=== PATIENT | female | born 1945 | race Caucasian/White ===

== ENCOUNTER 2018-10-31 09:57 | Day surgery (SDC) | payer MEDICARE, OTHER ==
[~2018-10-31] VITALS: Ht 167.6 cm; Wt 78.5 kg
[~2018-10-31 09:57] MED LIST: ADVAIR 500-501 EACH INH; ALBUTEROL2.5 MG/3 M INH; AMLODIPINE BES2.5 MG PO; AMLODIPINE BESYL5 MG PO; ASPIR 8181 MG PO; CYCLOBENZAPRINE10 MG PO; DARIFENACIN ER15 MG PO; DEXILANT60 MG PO; DIPHENHYDRAMINE25 M1 PO; FENOFIBRATE145 MG PO; HYDROMORPHONE HC4 MG PO; METOPROLOL SUCC25 MG PO; MONTELUKAST SOD10 MG PO; NORCO 5-325 TA1 EACH PO; PAROXETINE HCL30 MG PO; PAROXETINE HCL40 MG PO; RANITIDINE HCL150 MG PO; STOOL SOFTENER1 EAC2 PO; TIROSINT25 MCG PO; TIZANIDINE HCL2 M1 PO
--- NOTE | 2018-10-31 13:16 | NUR ---
10/31/18 1316 Sheets,[place] 1309 PT ARRIVED TO PACU ON 3L VIA NC, PT DROWSY AND DENIES NAUSEA AND PAIN. PT ENCOURAGED TO PASS GAS.
--- NOTE | 2018-11-01 16:41 | OR ---
[facility] [address] [place], [place] [address] Signed DATE OF OPERATION: 10/31/2018 SURGEON: Fernanda Lainez MD PREOPERATIVE DIAGNOSES: 1. Low abdominal pain, some mid abdominal pain and back pain. 2. History of Hill posterior gastropexy for intractable reflux, January 2016. POSTOPERATIVE DIAGNOSES: 1. Intact flap valve from Hill repair. 2. Normal-appearing esophageal mucosa. 3. Antral gastritis. PROCEDURE: Esophagogastroduodenoscopy with biopsy. ANESTHESIA: Intravenous sedation, fentanyl 100 mcg, Versed 3 mg. INDICATION: This 73-year-old white woman underwent Hill posterior gastropexy (reflux operation) in 2015 for intractable gastroesophageal reflux problems. She did well with it. She recently saw me, complained of back pain and some periumbilical pain and some concern that "acid is back." She was empirically treated with Nexium, which has been helpful. She is having no dysphagia or hematemesis. She does have some constipation. She continues to smoke unfortunately. She is admitted to undergo upper endoscopy to better characterize the issue, particularly to assess if there is breakdown of her repair. She understands the risks of bleeding, infection, and perforation and wished to proceed. FINDINGS: The esophageal mucosa was entirely normal. The flap valve appeared to be intact. There was no sign of recurrent hiatal hernia. There was antral gastritis. CLOtest was negative. DESCRIPTION OF PROCEDURE: The patient was brought to the endoscopy suite and given topical Hurricaine spray hypopharyngeal anesthesia and placed in lateral decubitus position. She was given intravenous sedation to the point of slurred speech and nystagmus. A bite block was placed. An Olympus video upper endoscope was passed in the hypopharynx. The vocal cords were normal. Scope was advanced to the esophagus throughout its length, it was Electronically Signed By: FERNANDA LAINEZ MD 11/01/18 1641 PATIENT NAME: JAMILAH DIAZ OPERATIVE REPORT DATE OF : 45 REPORT #: [id number] PHYSICIAN: FERNANDA LAINEZ MD PCP: ROLAND FARIAS PAC REPORT IS CONFIDENTIAL AND NOT TO BE RELEASED WITHOUT AUTHORIZATION [facility] [address] [place], [place] [address] Signed entirely normal. There is certainly no sign of stricture, neoplasm or any inflammation. Scope was advanced to the stomach, which was insufflated with air. Excess gastric juices suctioned free. There was no sign of bile in the stomach. Rugal folds were normal. There appeared to be mild antral gastritis, but no sign of erosion or ulcer proper. The pylorus was normal. Scope was passed through into the duodenum, which was normal. Biopsies were taken of the duodenum nevertheless. The scope was then withdrawn to the stomach and biopsies taken of the antrum for both EARNEST and pathologic testing. Insufflation of the stomach was undertaken and retroflexed view undertaken showing an intact flap valve. Retroflex view in an aggressive way did allow for visualization in a retrograde fashion upon withdrawal of scope into the GE junction. It is widely patent. The scope was straightened and withdrawn to the distal esophagus where the mucosa of the esophagus appeared normal. This was biopsied. Scope was then withdrawn and remaining esophagus appeared normal. CONCLUDING DIAGNOSIS: No evidence of recurrent esophagitis or hiatal hernia. Symptoms may be related to peptic symptoms of the antrum. PLAN: We will initiate Carafate 1 g p.o. q.i.d. on empty stomach, see back in 6 to 8 weeks and assess progress. She should quit smoking as this may be contributing to her gastritis. MD RODERICK Rincon/MAIKOLL /[id number] cc: Roland Farias PA-C Copies: ~ Electronically Signed By: FERNANDA LAINEZ MD 11/01/18 1641 PATIENT NAME: JAMILAH DIAZ OPERATIVE REPORT DATE OF : 45 REPORT #: [id number] PHYSICIAN: FERNANDA LAINEZ MD PCP: ROLAND FARIAS PAC REPORT IS CONFIDENTIAL AND NOT TO BE RELEASED WITHOUT AUTHORIZATION
--- NOTE | 2018-11-03 14:47 | PATH ---
[facility] [address] [place], [place] [address] Signed SPECIMEN(S): A DUODENAL BIOPSY SPECIMEN(S): B STOMACH BIOPSY SPECIMEN(S): C LOWER ESOPHAGEAL BIOPSY SPECIMEN SOURCE: A. DUODENAL BIOPSY B. STOMACH BIOPSY C. LOWER ESOPHAGEAL BIOPSY CLINICAL HISTORY: Abdominal pain, reflux. MICROSCOPIC DESCRIPTION: Histologic sections of all submitted blocks are examined by light microscopy. These findings, together with the gross examination, support the pathologic diagnosis. C. Sections reveal a biopsy of esophageal mucosa composed of stratified squamous nonkeratinizing epithelium. The basal cell layer is not prominent and rete ridges are not elongated. The mucosa proper contains a few lymphocytes. No eosinophils are seen. Submucosa is unremarkable. No glandular mucosa is present. LJA:smn FINAL PATHOLOGIC DIAGNOSIS: A. Mucosa, duodenum, biopsy: - Duodenal mucosa with normal villiform architecture, no microscopic pathologic diagnosis. B. Mucosa, stomach, biopsy: - No microscopic pathologic diagnosis. - Negative for the presence of bacteria morphologically consistent with Helicobacter on HE-stained sections. C. Mucosa, lower esophagus, biopsy: - No microscopic pathologic diagnosis. LJA:smn:C2NR GROSS DESCRIPTION: Three specimens are received in three containers, labeled "SS." A. The specimen, labeled "SS, duodenal biopsy," is received in formalin and consists of two linares-pink fragments, both measuring 0.2 cm. The specimen is entirely submitted in cassette (A1). B. The specimen, labeled "SS, gastric biopsy," is received in formalin and consists of two linares-brown fragments, both measuring 0.2 cm. The specimen is PATIENT NAME: JAMILAH DIAZ PATHOLOGY DATE OF : 45 REPORT #: [id number] PHYSICIAN: SHERRY SOTO PCP: ROLAND FARIAS PAC REPORT IS CONFIDENTIAL AND NOT TO BE RELEASED WITHOUT AUTHORIZATION [facility] [address] [place] [address] Signed entirely submitted in cassette (B1). C. The specimen, labeled "SS, lower esophageal biopsy," is received in formalin and consists of three, 0.1-0.3 cm linares-white fragments. The specimen is entirely submitted in cassette (C1). AM (under the direct supervision of a pathologist) The Gross Description was prepared using a voice recognition system. The report was reviewed for accuracy; however, sound-alike word errors, addition and/or deletions may occur. If there is any question about this report, please contact Client Services. PERFORMING LABORATORY: The technical component was performed by [facility], [address] [place] [id number] (Partition Setter: Janina Green MD; CLIA# [id number]). [facility], [address] [address] (Partition Setter: Sekou Small MD; CLIA# [id number]). Diagnostician: Sekou Small MD Pathologist Electronically Signed 11/03/2018 Copies: ~ PATIENT NAME: JAMILAH DIAZ PATHOLOGY DATE OF : 45 REPORT #: [id number] PHYSICIAN: SHERRY SOTO PCP: ROLAND FARIAS PAC REPORT IS CONFIDENTIAL AND NOT TO BE RELEASED WITHOUT AUTHORIZATION
== END 2018-10-31 15:35 | disposition home or self-care (01) ==
LOC: DS 09:57 → OPS 09:57
PROVIDERS: Surgery
PROC: 0DB68ZX Excision of Stomach, Via Natural or Artificial Opening Endoscopic, Diagnostic (ICD-10-PCS; 2018-10-31)
PROC: 0DB38ZX Excision of Lower Esophagus, Via Natural or Artificial Opening Endoscopic, Diagnostic (ICD-10-PCS; 2018-10-31)
PROC: 0DB98ZX Excision of Duodenum, Via Natural or Artificial Opening Endoscopic, Diagnostic (ICD-10-PCS; principal; 2018-10-31 09:00)
DX: K29.70 Gastritis, unspecified, without bleeding (principal); M19.90 Unspecified osteoarthritis, unspecified site; F17.210 Nicotine dependence, cigarettes, uncomplicated; E66.3 Overweight; G70.00 Myasthenia gravis without (acute) exacerbation; R32 Unspecified urinary incontinence; Z98.890 Other specified postprocedural states; Z88.0 Allergy status to penicillin; Z88.8 Allergy status to other drugs, medicaments and biological substances; Z91.041 Radiographic dye allergy status; Z68.28 Body mass index [BMI] 28.0-28.9, adult
CPT/HCPCS: 99153; G0500; J2250; J3010; J7120

== ENCOUNTER 2019-02-12 10:55 | Day surgery (SDC) | payer MEDICARE, OTHER ==
[~2019-02-12] VITALS: Ht 165.1 cm; Wt 78.5 kg
--- NOTE | ~2019-02-12 | OR ---
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 POSTOPERATIVE DIAGNOSES: 1. Chronic acalculous cholecystitis (CCK HIDA test, no ejection fraction, and reproduction of biliary symptoms). 2. Omental adhesions to abdominal wall. PROCEDURES PERFORMED: 1. Laparoscopic evaluation with lysis of adhesions. 2. Laparoscopic cholecystectomy with intraoperative cholangiogram. 3. Surgeon-directed fluoroscopy. ANESTHESIA: General endotracheal; Fernanda Pacheco CRNA, and local 10 mL of 0.25% Marcaine with epinephrine. INDICATIONS: This 74-year-old white woman is a patient of David Mendoza and well known to me from the past having undergone Hill repair for a large paraesophageal hernia in 2016. The patient has developed complaints of band-like pain extending from the epigastric to the right subcostal and to the posterior thoracic area, which is persistent and ongoing. A gallbladder ultrasound showed no sign of stones and a CCK HIDA test was performed on February 05, 2019, which showed essentially no ejection fraction and reproduction of her symptoms. This would be considered a significantly positive test for acalculous cholecystitis. She has been offered laparoscopic cholecystectomy, possible open procedure. She had a paraesophageal hernia repair as previously described, which has held up well and she has no reflux type symptoms or dysphagia. The patient understands the risks of operation including but not limited to bleeding, infection, bile duct injury, need for open procedure and other unforeseen complications. FINDINGS: PATIENT NAME: JAMILAH DIAZ OPERATIVE REPORT DATE OF : 45 REPORT #: [id number] PHYSICIAN: FERNANDA LAINEZ MD PCP: ROLAND FARIAS PAC REPORT IS CONFIDENTIAL AND NOT TO BE RELEASED WITHOUT AUTHORIZATION [facility] [address] [place], [place] [address] Draft A midline incision extending from the xiphoid to above the umbilicus was well demonstrated without hernia. There were some omental adhesions to the anterior abdominal wall, which required lysis of adhesions for exposure of the gallbladder. Once this was accomplished, cholecystectomy was rather straightforward. The gallbladder was chronically inflamed, somewhat floppy. The liver was normal. The stomach appeared to be within the abdominal cavity. There were no other findings of concern. The gallbladder once excised showed mild chronic inflammation of mucosa, no sign of stones, no sign of neoplasm. Cholangiogram was normal. DESCRIPTION OF PROCEDURE: The patient was brought to the operating room, given a general endotracheal anesthetic. Preoperative antibiotic Ancef was given. Sequential compression device stockings used and heparin subcutaneously administered. After satisfactory general endotracheal anesthesia, the abdomen was prepared with a chlorhexidine solution and draped sterilely. The previous incision extended from below the xiphoid to above the umbilicus. The infraumbilical incision was made and using an open Cynthia cannula technique, pneumoperitoneum was achieved to a level of 14 mmHg of carbon dioxide gas. Intraabdominal inspection showed omental adhesions to the anterior abdominal wall, generally in the area of the previous incision. On that basis, a 12 mm epigastric port was placed out of the way of the adhesions and using primarily sharp and some electrocautery dissection, omental adhesions were dissected free from the anterior abdominal wall without problem. Two additional trocars were placed, one in the midclavicular line, and in the right anterior axillary line. Gallbladder was then identified more fully, showed to be chronically inflamed. [place] of gallbladder was elevated cephalad. Omental adhesions were taken down with blunt electrocautery dissection. The infundibulum was grasped and retracted laterally and using blunt and electrocautery dissection the triangle of Calot was dissected free. A dominant cystic artery was identified and was doubly clipped and subsequently divided. Further dissection showed a normal-appearing cystic duct. The cystic duct was clipped at the gallbladder cystic duct junction and a transverse choledochotomy made in the cystic duct. Retrograde milking of the duct showed no sign of stone, only clear bile. Using the Tariq type cholangiocatheter, intraoperative cholangiography was undertaken showing free flow of contrast into the biliary tree with prompt emptying into the duodenum. There was no sign of filling defect or other abnormality. The catheter was removed and the cystic duct was triply clipped and divided. The gallbladder dissected free in a retrograde fashion using electrocautery. Gallbladder was extracted through the infraumbilical port site without problem, opened on the back PATIENT NAME: JAMILAH DIAZ OPERATIVE REPORT DATE OF : 45 REPORT #: [id number] PHYSICIAN: FERNANDA LAINEZ MD PCP: ROLAND FARIAS PAC REPORT IS CONFIDENTIAL AND NOT TO BE RELEASED WITHOUT AUTHORIZATION [address] [address] Draft table and found to have chronic inflammatory change of the mucosa. No sign of stones or neoplasm. Irrigation was undertaken in subhepatic space. There was no sign of bleeding or other issue. There was no bile leak. The trocars were then removed under direct visualization showing no sign of bleeding. The infraumbilical fascial incision was reapproximated with interrupted 0 Vicryl suture and a running 0 PDS suture as well. 10 mL of 0.25% Marcaine with epinephrine was injected locally for postoperative analgesic benefit to each of the incisions. The skin was then closed with interrupted 3-0 Vicryl and Steri-Strips applied. The patient was ultimately extubated and transferred to recovery room in good condition having suffered no complication. Sponge, needle, and instrument counts reported as correct x3. The operation was more difficult than usual on the basis of lysis of adhesions from prior laparotomy incision, but it was accomplished safely. MD RODERICK Rincon/ISIS /[id number] cc: CACHORRO Goyal Copies: ~ PATIENT NAME: JAMILAH DIAZ OPERATIVE REPORT DATE OF : 45 REPORT #: [id number] PHYSICIAN: FERNANDA LAINEZ MD PCP: ROLAND FARIAS PAC REPORT IS CONFIDENTIAL AND NOT TO BE RELEASED WITHOUT AUTHORIZATION
[~2019-02-12 10:55] MED LIST changes: +ADVAIR 250-501 EACH INH; +INCRUSE ELLI62.5 MCG; +IRON325 M1 PO; +VITAMIN C500 M4 PO; +VITAMIN D32000 UNI1 PO
--- NOTE | 2019-02-12 17:25 | NUR ---
PT HAS BEEN UPDATED ABOUT DELAY TODAY. HAS BEEN OK WITH IT. IV PATENT. WARM BLANKETS PUT ON PT PER REQUEST.
--- NOTE | 2019-02-12 19:37 | NUR ---
02/12/191936 Jessica Taylor 1927-PATIENT ARRIVED TO PACU ON 10L MASK NONAROUSABLE. RR EVEN. ABDOMEN ROUND STERI STRIPS CDI. SB. PLACED ON 6L MASK 1933-PATIENT REACTIVE TO VERBAL STIMULI OPENING EYES RAISING RIGHT HAND. ORAL AIRWAY REMOVED. ON 6L MASK RR EVEN. PATIENT VERY DROWSY SHAKES HEAD NO WHEN ASKED IF IN PAIN. DOZES BACK TO SLEEP.
[2019-02-12] MEDS ORDERED: TYLENOL EXTRA500 MG PO (19:49)
[2019-02-12] MEDS ORDERED: IBUPROFEN600 MG PO (19:49)
[2019-02-12] MEDS ORDERED: OXYCODON-ACETA1 EAC2 PO (19:49)
--- NOTE | 2019-02-12 20:10 | NUR ---
PT ARRIVED FROM PACU VIA STRETCHER. SHE IS ON 2 LNC AND SHE IS ALERT AND ORIENTENTED. PT WAS ABLE TO MOVE HERSELF OVER TO THE BED. SON IN LAW IN IS THE ROOM.
--- NOTE | 2019-02-12 21:04 | NUR ---
PT IS DOING WELL, SHE HAS MET ALL DC CRITERIA EXCEPT SHE IS ON 1LNC AT THIS TIME. HER SON IN LAW LEFT TO GET HER PRESCRIPTION. SHE DENIES NAUSEA AND WAS JUST GIVE OXYCODONE FOR 5/10 PAIN. SHE IS GETTING DRESSED AT THIS TIME. CALL LIGHT IS WITHIN REACH.
--- NOTE | 2019-02-12 21:24 | NUR ---
PT IS DRESSED AND WANTING TO GO, SHE IS IN THE LOW 90'S 02 ON 1 LNC. TURNED HER O2 OFF AND SHE IS 90%. WILL CHECK ON HER AGAIN TO SEE IF SHE IS MAINTAINING ON RA. HER SON-IN-LAW WILL RETURN SOON TO TAKE HER HOME.
--- NOTE | 2019-02-12 21:37 | NUR ---
VA TAKEN AND STABLE, SHE IS DOING WELL ON RA. NO NAUSEA AND PAIN IS WELL CONTROLLED. IV REMOVED CATH TIP INTACT AND PT TOLERATED WELL. PAPERWORK REVIEWED AND SIGNED AND SON-IN-LAW IS TAKING HER HOME.
--- NOTE | 2019-02-16 15:10 | PATH ---
[facility] [address] [place], [place] [address] Signed SPECIMEN(S): A GALLBLADDER SPECIMEN SOURCE: A. GALLBLADDER CLINICAL HISTORY: Chronic cholecystitis. FINAL PATHOLOGIC DIAGNOSIS: Gallbladder, cholecystectomy: - Mild chronic cholecystitis. NAL:emb:C2NR MICROSCOPIC EXAMINATION: Histologic sections of all submitted blocks are examined by light microscopy. These findings, together with the gross examination, support the pathologic diagnosis. GROSS DESCRIPTION: The specimen, labeled "SS, gallbladder," is received in formalin and consists of Specimen: Previously opened gallbladder. Dimensions: 6.2 x 4.3 x 0.9 cm. Serosa: Yellow-green and wrinkled. Cystic Duct: Probe patent and inked. Calculi: Not grossly identified. Mucosa: Green and velvety. Wall thickness: 0.3 cm. Lymph node: No pericystic lymph nodes are grossly identified. Additional: None. Service Shop Foreman sections are submitted in cassette (A1). FB (under the direct supervision of a pathologist) The Gross Description was prepared using a voice recognition system. The report was reviewed for accuracy; however, sound-alike word errors, addition and/or deletions may occur. If there is any question about this report, please contact Client Services. PERFORMING LABORATORY: The technical component was performed by [facility], [address] [place] [id number] (Sausage Cooker: Janina Green MD; CLIA# [id number]). Professional interpretation was performed by PATIENT NAME: JAMILAH DIAZ PATHOLOGY DATE OF : 45 REPORT #: [id number] PHYSICIAN: SHERRY PATHOLOGY PCP: ROLAND FARIAS PAC REPORT IS CONFIDENTIAL AND NOT TO BE RELEASED WITHOUT AUTHORIZATION [facility] [address] [place], [place] [address] Signed [facility], [facility], [address] [facility] [address], [place] [address] (Sausage Cooker: Sekou Small MD; CLIA# [id number]). Diagnostician: Zoe Pate MD Pathologist Electronically Signed 02/16/2019 Copies: ~ PATIENT NAME: JAMILAH DIAZ PATHOLOGY DATE OF : 45 REPORT #: [id number] PHYSICIAN: SHERRY PATHOLOGY PCP: ROLAND FARIAS PAC REPORT IS CONFIDENTIAL AND NOT TO BE RELEASED WITHOUT AUTHORIZATION
== END 2019-02-12 21:39 | disposition home or self-care (01) ==
LOC: OPS 10:55 → DS 10:55 → OPS 12:45 → MS 20:10 → OPS 21:39
PROVIDERS: Surgery
PROC: BF13YZZ Fluoroscopy of Gallbladder and Bile Ducts using Other Contrast (ICD-10-PCS; 2019-02-12)
PROC: 0FT44ZZ Resection of Gallbladder, Percutaneous Endoscopic Approach (ICD-10-PCS; principal; 2019-02-12 12:45)
DX: K81.1 Chronic cholecystitis (principal); K66.0 Peritoneal adhesions (postprocedural) (postinfection); E83.51 Hypocalcemia; G70.00 Myasthenia gravis without (acute) exacerbation; K21.9 Gastro-esophageal reflux disease without esophagitis; K44.9 Diaphragmatic hernia without obstruction or gangrene; M19.90 Unspecified osteoarthritis, unspecified site; I12.9 Hypertensive chronic kidney disease with stage 1 through stage 4 chronic kidney disease, or unspecified chronic kidney disease; N18.9 Chronic kidney disease, unspecified; G47.33 Obstructive sleep apnea (adult) (pediatric); F17.210 Nicotine dependence, cigarettes, uncomplicated; J44.9 Chronic obstructive pulmonary disease, unspecified; Z85.820 Personal history of malignant melanoma of skin; Z88.0 Allergy status to penicillin; Z88.8 Allergy status to other drugs, medicaments and biological substances; Z91.041 Radiographic dye allergy status; Z91.040 Latex allergy status; Z79.82 Long term (current) use of aspirin; Z79.899 Other long term (current) drug therapy
CPT/HCPCS: 00790; 74300; J0330; J0690; J1100; J1644; J1885; J2250; J2704; J7121; Q9967

== ENCOUNTER 2019-08-17 20:06 | Emergency (ER) | payer MEDICARE, OTHER ==
[~2019-08-17] VITALS: Ht 165.1 cm; Wt 82.1 kg
[~2019-08-17 20:06] MED LIST changes: +IBUPROFEN600 MG PO; +OXYCODON-ACETA1 EAC2 PO; +TYLENOL EXTRA500 MG PO
== END 2019-08-17 22:34 | disposition home or self-care (01) ==
LOC: ED 20:06
DX: S93.402A Sprain of unspecified ligament of left ankle, initial encounter (principal); J44.9 Chronic obstructive pulmonary disease, unspecified; F17.200 Nicotine dependence, unspecified, uncomplicated; Z88.0 Allergy status to penicillin; Z91.040 Latex allergy status; Z91.09 Other allergy status, other than to drugs and biological substances; Z88.8 Allergy status to other drugs, medicaments and biological substances; Z79.899 Other long term (current) drug therapy; Z79.82 Long term (current) use of aspirin; W10.9XXA Fall (on) (from) unspecified stairs and steps, initial encounter
CPT/HCPCS: 73610; 99283-25

== ENCOUNTER 2021-10-29 13:43 | Emergency (ER) | payer MEDICARE, OTHER ==
[~2021-10-29] VITALS: Ht 165.1 cm; Wt 83.5 kg
--- OUTSIDE RECORDS SUMMARY | 2021-10-29 13:44 | XMS ---
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 ELazaro VISIT COUNT (12 MO.) 1 IGNACIO Rosario TOTAL 1 NOTE: Visits indicate total known visits. ED/UCC VISIT TRACKING (12 MO.) 10/29/2021 13:43 IGNACIO Garcia [place] TYPE: Emergency COMPLAINT: - BACK/ABD PAIN INPATIENT VISIT TRACKING (12 MO.) No inpatient visits to display in this time frame [email or web address]
[2021-10-29] MEDS ORDERED: METRONIDAZOLE500 MG PO (17:58)
[2021-10-29] MEDS ORDERED: CIPRO500 MG PO (17:58)
== END 2021-10-29 18:39 | disposition home or self-care (01) ==
LOC: ED 13:43
DX: K57.32 Diverticulitis of large intestine without perforation or abscess without bleeding (principal); C78.7 Secondary malignant neoplasm of liver and intrahepatic bile duct; M89.9 Disorder of bone, unspecified; N28.9 Disorder of kidney and ureter, unspecified; J44.9 Chronic obstructive pulmonary disease, unspecified; F17.200 Nicotine dependence, unspecified, uncomplicated; Z79.899 Other long term (current) drug therapy; Z88.0 Allergy status to penicillin; Z88.8 Allergy status to other drugs, medicaments and biological substances; Z91.041 Radiographic dye allergy status; Z91.040 Latex allergy status
CPT/HCPCS: 36415; 74176; 80053; 81001; 83690; 85025; 99284-25